=== PATIENT | male | born 1990 | race African-American/Black ===

== ENCOUNTER 2024-11-20 08:08 | Outpatient (CLI) | payer OTHER, SELFPAY ==
--- NOTE | ~2024-11-20 | MR_ITS ---
EXAMINATION: MR ankle LT wo con DATE: 11/20/2024 08:43 INDICATION: Left ankle pain TECHNIQUE: Magnetic resonance imaging (MRI) of the left ankle was performed without intravenous contrast. Sequences included sagittal, coronal, and axial proton-density weighted fast spin echo without and with fat saturation. COMPARISON: None. FINDINGS: Medial ankle ligaments: Deep and superficial deltoid ligaments as well as the spring ligament are normal. Lateral ankle ligaments: The anterior inferior tibiofibular ligament is normal. There is prominent heterotopic ossification along the tibial insertion of the posterior inferior tibiofibular ligament as well as along the tibial side of the distal tibiofibular syndesmosis suggesting sequela of chronic avulsion injuries. The calcaneofibular and posterior talofibular ligaments are normal. There appears be a small heterotopic ossicle along the attenuated anterior talofibular ligament consistent with sequela of chronic sprain/partial tear. Tendons: Moderate to severe Achilles tendinosis with prominent thickening and mild increased signal throughout the distal tendon. There is a full-thickness tear located 6 cm proximal to the calcaneal insertion with approximately 4 cm retraction of the ragged proximal and distal tear margins. The peroneus longus and brevis tendons are normal. The tibialis anterior and extensor hallucis longus and extensor digitorum longus tendons are normal. The tibialis posterior, flexor digitorum longus and flexor hallucis longus tendons are normal. Plantar fascia: Plantar aponeurosis is normal. Bones/other: Bone alignment is normal. Normal bone marrow signal throughout with no fracture or pathologic marrow replacing process. Joint spaces at the ankle and visualized mid and hindfoot are normal. Fluid: Physiologic amount fluid in the joint spaces. There is soft tissue edema at the site of the Achilles tendon tear and in the surrounding subcutaneous tissues. IMPRESSION: 1. Moderate to severe Achilles tendinosis with full-thickness tear 6 cm from the calcaneal insertion. 2. Stigmata of chronic sprain/partial tears of the anterior talofibular and posterior inferior tibiofibular ligaments as well as the distal tibiofibular syndesmosis. Reviewed, dictated and finalized at location A. IMPRESSION: 1. Moderate to severe Achilles tendinosis with full-thickness tear 6 cm from th e calcaneal insertion. 2. Stigmata of chronic sprain/partial tears of the anterior talofibular and pos terior inferior tibiofibular ligaments as well as the distal tibiofibular synde smosis.
== END 2024-11-20 08:09 | disposition home or self-care (01) ==
LOC: MICIMG 08:09
PROVIDERS: PCP Nurse Practitioner Family; Visit Provider Nurse Practitioner Family
DX: M76.62 Achilles tendinitis, left leg (principal)
CPT/HCPCS: 73721